=== PATIENT | male | born 1965 | race Caucasian/White ===

== ENCOUNTER 2019-02-05 13:59 | Emergency (ER) | payer SELFPAY ==
[~2019-02-05] VITALS: Ht 162.6 cm; Wt 63.5 kg
[2019-02-05 14:43] VITALS: BP 127/75
[2019-02-05 14:59] LABS: BILIRUBIN,URINE NEGATIVE (NEG); CLARITY,URINE CLEAR; COLOR,URINE YELLOW; NITRITE,URINE NEGATIVE (NEG); PH,URINE 5.5; PROTEIN,URINE NEGATIVE (NEG-TRACE); UROBILINOGEN,URINE 0.2 mg/dL (0.2 mg/dL)
[2019-02-05 15:05] LABS: AMORPHOUS SEDIMENT,UR PRESENT /HPF; BARBITURATES NEG (NEG); BENZODIAZEPINES NEG (NEG); CANNABINOIDS NEG (NEG); COCAINE NEG (NEG); HYALINE CASTS, URINE FEW /HPF; METHADONE NEG (NEG); OPIATES NEG (NEG); PHENCYCLIDINE NEG (NEG); SQUAMOUS EPITHELIAL CELL,UR FEW /LPF
[2019-02-05 15:06] LABS: BACTERIA,URINE 0 /HPF (0-FEW); RBC,URINE 0 /HPF (0-2)
[2019-02-05 15:09] LABS: AMPHETAMINE/METHAMPHETAMINE POS (NEG)
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
== END 2019-02-05 16:25 | disposition home or self-care (01) ==
LOC: ER 13:59
DX: F15.90 Other stimulant use, unspecified, uncomplicated (principal)
CPT/HCPCS: 80307; 81001; 99284